=== PATIENT | male | born 1955 | race Caucasian/White ===

== ENCOUNTER 2025-02-25 15:22 | Inpatient (IN) | payer MEDICARE, MEDICAID ==
[~2025-02-25] VITALS: Ht 177.8 cm; Wt 66.2 kg
[2025-02-25 16:12] LABS: COVID AG,FIA SOURCE NASAL SWAB
[2025-02-25 16:13] LABS: PLATELET COUNT (AUTO) 178 K/uL (150-450); RED BLOOD CELL COUNT(AUTO) 4.20 MIL/uL (4.50-5.90); RED CELL DISTRIBUTION WIDTH 13.0 % (11.5-14.5); WHITE BLOOD COUNT (AUTO) 3.7 K/uL (4.5-11.0)
[2025-02-25 16:19] LABS: CALCIUM, TOTAL 8.8 mg/dL (8.8-10.5); CREATININE 0.90 mg/dL (0.60-1.30); GLOMERULAR FILTR. RATE CALC > 60 mL/min (>60); GLUCOSE,RANDOM 114 mg/dL (70-110); SODIUM SERUM 140 mmol/L (136-145); UREA NITROGEN, BLOOD 15 mg/dL (7-18)
[2025-02-25 16:25] LABS: ASPARTATE AMINOTRANSFERASE 14 U/L (15-37); TOTAL PROTEIN, SERUM 7.2 g/dL (6.4-8.2)
[2025-02-25 16:30] LABS: ALCOHOL, BLOOD (SERUM) < 3 mg/dL (0-10); TROPONIN I-HIGH SENSITIVITY 17 ng/L (<76)
[2025-02-25 16:36] LABS: SARS-COV2 (COVID) ANTIGEN,FIA Negative (Negative)
[2025-02-25 16:44] LABS: APPEARANCE,URINE CLEAR (CLEAR); GLUCOSE, URINE (UA) NEGATIVE (NEGATIVE); LEUKOCYTE ESTERASE ,URINE NEGATIVE (NEGATIVE); NITRATE,URINE NEGATIVE (NEGATIVE); OCCULT BLOOD,URINE NEGATIVE (NEGATIVE); PH,URINE DRUG SCREEN 5.5 (5.0-8.0); SPECIFIC GRAVITIY, URINE 1.028 (1.003-1.030)
[2025-02-25 16:52] LABS: ALCOHOL, URINE DRUG SCREEN NEGATIVE (NEGATIVE); AMPHET/METH SCREEN,URINE NEGATIVE (NEGATIVE); BARBITURATE SCREEN, URINE NEGATIVE (NEGATIVE); CANNABINOID SCREEN,URINE NEGATIVE (NEGATIVE); COCAINE SCREEN,URINE NEGATIVE (NEGATIVE); METHADONE SCREEN, URINE NEGATIVE (NEGATIVE)
[2025-02-25] MEDS ORDERED: INFLUENZA VIRUS VACCINE TVS (6MO+) 2025-26/PF 45 MCG/0.5 ML SYRINGE IM. ONE (22:00)
[2025-02-25] MEDS: ZOLPIDEM TARTRATE 5 MG TABLET PO PRN (22:07)
[2025-02-25 22:18] VITALS: BP 142/104; PULSE 77; RESP 17; TEMP 97.4; O2SAT 98
[2025-02-25 22:19] VITALS: BP 142/104; PULSE 77; RESP 17; TEMP 97.4; O2SAT 98
[2025-02-26 06:37] VITALS: BP 116/68; PULSE 62; RESP 16; TEMP 97.5; O2SAT 100
[2025-02-26 08:23] VITALS: BP 134/87; PULSE 64; RESP 17; TEMP 97.2; O2SAT 100
[2025-02-26 08:45] LABS: CHOL/HDL RATIO 3.0 (4.2-7.3); LDL CHOL (CALC.) 74.0 mg/dL (0-130)
[2025-02-26 09:00] VITALS: BP 134/84; PULSE 64; RESP 17; TEMP 97.2; O2SAT 100
[2025-02-26] MEDS: BENZTROPINE MESYLATE 1 MG TABLET PO SCH (17:20)
[2025-02-26 20:00] VITALS: BP 125/76; PULSE 61; RESP 18; TEMP 97.8; O2SAT 99
[2025-02-26 21:07] VITALS: BP 120/68; PULSE 50; RESP 16; TEMP 98.2; O2SAT 99
[2025-02-27 08:46] LABS: PLATELET COUNT (AUTO) 183 K/uL (150-450); RED BLOOD CELL COUNT(AUTO) 4.22 MIL/uL (4.50-5.90); RED CELL DISTRIBUTION WIDTH 13.3 % (11.5-14.5); WHITE BLOOD COUNT (AUTO) 4.0 K/uL (4.5-11.0)
[2025-02-27 09:21] VITALS: BP 129/87; PULSE 82; RESP 17; TEMP 97.2; O2SAT 96
[2025-02-27 09:23] LABS: ASPARTATE AMINOTRANSFERASE 14 U/L (15-37); CALCIUM, TOTAL 9.0 mg/dL (8.8-10.5); CREATININE 0.77 mg/dL (0.60-1.30); GLOMERULAR FILTR. RATE CALC > 60 mL/min (>60); GLUCOSE,RANDOM 85 mg/dL (70-110); SODIUM SERUM 140 mmol/L (136-145); TOTAL PROTEIN, SERUM 7.0 g/dL (6.4-8.2); UREA NITROGEN, BLOOD 18 mg/dL (7-18)
[2025-02-27 20:07] VITALS: BP 111/76; PULSE 57; RESP 18; TEMP 97.6; O2SAT 97
[2025-02-28 08:27] VITALS: BP 120/68; PULSE 60; RESP 19; TEMP 97.1; O2SAT 98
[2025-02-28] MEDS: APIXABAN 2.5 MG TABLET PO SCH (17:31)
[2025-02-28 20:07] VITALS: BP 103/72; PULSE 73; RESP 17; TEMP 97.8; O2SAT 97
[2025-02-28 23:45] VITALS: BP_SYST 122; BP_DIAS 78; BP_DIAS 92; PULSE 75; RESP 17; TEMP 97.9; TEMP 98; O2SAT 100
[2025-03-01] VITALS (7 sets, daily range): BP systolic 107–119; BP diastolic 54–90; PULSE 68–88; RESP 16–17; TEMP 97.3–98.1; O2SAT 96–100
== END 2025-03-01 18:48 | disposition short-term general hospital (02) | DRG 885 ==
LOC: EMS 15:22 → B2S 20:24
PROVIDERS: ADMIT Psychiatry & Neurology Child & Adolescent Psychiatry; ATTEND Psychiatry & Neurology Child & Adolescent Psychiatry
PROC: GZ56ZZZ Individual Psychotherapy, Supportive (ICD-10-PCS; principal; 2025-02-26)
DX: F32.2 Major depressive disorder, single episode, severe without psychotic features (principal); R45.851 Suicidal ideations; I10 Essential (primary) hypertension; Z20.822 Contact with and (suspected) exposure to COVID-19; F03.B0 Unspecified dementia, moderate, without behavioral disturbance, psychotic disturbance, mood disturbance, and anxiety; F29 Unspecified psychosis not due to a substance or known physiological condition
CPT/HCPCS: 80048; 80053; 80061; 80076; 80307; 81003; 83036; 83735; 84439; 84443; 84484; 85025; 99285; G0480

== ENCOUNTER 2025-03-01 05:09 | Inpatient (IN) | payer MEDICARE, OTHER ==
[~2025-03-01] VITALS: Ht 167.6 cm; Wt 67.5 kg
[2025-03-01 06:48] LABS: PLATELET COUNT (AUTO) 165 K/uL (150-450); RED BLOOD CELL COUNT(AUTO) 4.07 MIL/uL (4.50-5.90); RED CELL DISTRIBUTION WIDTH 13.3 % (11.5-14.5); WHITE BLOOD COUNT (AUTO) 4.7 K/uL (4.5-11.0)
[2025-03-01 07:39] LABS: CALCIUM, TOTAL 8.8 mg/dL (8.8-10.5); CREATININE 0.83 mg/dL (0.60-1.30); GLOMERULAR FILTR. RATE CALC > 60 mL/min (>60); GLUCOSE,RANDOM 96 mg/dL (70-110); SODIUM SERUM 141 mmol/L (136-145); UREA NITROGEN, BLOOD 17 mg/dL (7-18)
[2025-03-01 08:52] LABS: COVID AG,FIA SOURCE NASAL SWAB
[2025-03-01 09:20] LABS: SARS-COV2 (COVID) ANTIGEN,FIA Positive (Negative)
[2025-03-01] MEDS ORDERED: ACETAMINOPHEN 325 MG TABLET PO PRN (11:15)
[2025-03-01] MEDS ORDERED: ZOLPIDEM TARTRATE 5 MG TABLET PO PRN (11:15)
[2025-03-01] MEDS ORDERED: ONDANSETRON HCL 4 MG/2 ML VIAL IVP PRN (11:15)
[2025-03-01 15:06] LABS: APPEARANCE,URINE CLEAR (CLEAR); GLUCOSE, URINE (UA) NEGATIVE (NEGATIVE); LEUKOCYTE ESTERASE ,URINE NEGATIVE (NEGATIVE); NITRATE,URINE NEGATIVE (NEGATIVE); OCCULT BLOOD,URINE NEGATIVE (NEGATIVE); PH,URINE DRUG SCREEN 7.0 (5.0-8.0); SPECIFIC GRAVITIY, URINE 1.021 (1.003-1.030)
[2025-03-01 15:43] LABS: ALCOHOL, URINE DRUG SCREEN NEGATIVE (NEGATIVE); AMPHET/METH SCREEN,URINE NEGATIVE (NEGATIVE); BARBITURATE SCREEN, URINE NEGATIVE (NEGATIVE); CANNABINOID SCREEN,URINE NEGATIVE (NEGATIVE); COCAINE SCREEN,URINE NEGATIVE (NEGATIVE); METHADONE SCREEN, URINE NEGATIVE (NEGATIVE)
[2025-03-01] MEDS: HEPARIN SODIUM,PORCINE 5,000 UNITS/ML VIAL SQ SCH (16:00)
[2025-03-01] MEDS: DOCUSATE SODIUM 100 MG CAPSULE PO SCH (20:23)
[2025-03-01 22:35] VITALS: BP 117/70; PULSE 55; RESP 18; TEMP 97.7; O2SAT 99
[2025-03-02 05:00] VITALS: BP 132/83; PULSE 58; RESP 18; TEMP 97.5; O2SAT 98
[2025-03-02 07:37] VITALS: BP 158/79; PULSE 112; RESP 18; TEMP 97.7; O2SAT 95
[2025-03-02] MEDS: FAMOTIDINE 20 MG TABLET PO SCH (08:23)
[2025-03-02 15:22] VITALS: BP 111/78; PULSE 87; RESP 20; TEMP 97.9; O2SAT 99
[2025-03-02 20:01] VITALS: BP 115/74; PULSE 85; RESP 18; TEMP 98.2; O2SAT 98
[2025-03-03 04:14] VITALS: BP 114/73; PULSE 74; RESP 18; TEMP 98.6; O2SAT 99
[2025-03-03 08:00] VITALS: BP 125/74; PULSE 56; RESP 20; TEMP 97.7; O2SAT 100
[2025-03-03 10:57] LABS: COVID AG,FIA SOURCE NASAL SWAB
[2025-03-03 11:27] LABS: SARS-COV2 (COVID) ANTIGEN,FIA Negative (Negative)
[2025-03-03 16:00] VITALS: BP 112/70; PULSE 71; RESP 19; TEMP 98.1; O2SAT 99
[2025-03-03] MEDS ORDERED: DOCU-385 PO (18:26)
[2025-03-03] MEDS ORDERED: FAMO20 PO (18:26)
[2025-03-03] MEDS ORDERED: HEPA50009 SQ (18:27)
[2025-03-03] MEDS ORDERED: ACET-2247 PO (18:28)
[2025-03-03 20:00] VITALS: BP 145/79; PULSE 98; RESP 20; TEMP 98.4; O2SAT 99
== END 2025-03-03 20:45 | DRG 178 ==
LOC: EMS 05:10 → EDH 11:07 → 4E 22:34
PROVIDERS: ADMIT Internal Medicine; ATTEND Internal Medicine
DX: U07.1 COVID-19 (principal); F33.2 Major depressive disorder, recurrent severe without psychotic features; I10 Essential (primary) hypertension; Z04.3 Encounter for examination and observation following other accident
CPT/HCPCS: 80048; 80307; 81003; 85025; 97116; 97163; 99285; G0378; G0480; J1644

== ENCOUNTER 2025-03-03 09:10 | Inpatient (IN) | payer MEDICARE, MEDICAID ==
[~2025-03-03] VITALS: Ht 167.6 cm; Wt 64.9 kg
[2025-03-03] MEDS ORDERED: ZOLPIDEM TARTRATE 10 MG TABLET PO PRN (15:00)
[2025-03-03] MEDS ORDERED: FAMO20 PO (18:26)
[2025-03-03] MEDS ORDERED: DOCU-385 PO (18:26)
[2025-03-03] MEDS ORDERED: HEPA50009 SQ (18:27)
[2025-03-03] MEDS ORDERED: ACET-2247 PO (18:28)
[2025-03-03 23:50] VITALS: BP_SYST 124; BP_DIAS 70; BP_DIAS 72; PULSE 74; PULSE 80; RESP 18; TEMP 98.1; TEMP 98.2; O2SAT 98
[2025-03-04] MEDS: DOCUSATE SODIUM 100 MG CAPSULE PO SCH (09:23)
[2025-03-04] MEDS: BENZTROPINE MESYLATE 1 MG TABLET PO SCH ×2 (09:23→17:05)
[2025-03-04] MEDS: FAMOTIDINE 20 MG TABLET PO SCH (09:23)
[2025-03-04 09:56] LABS: CHOL/HDL RATIO 2.8 (4.2-7.3); LDL CHOL (CALC.) 71.0 mg/dL (0-130)
[2025-03-04 10:22] VITALS: BP 115/97; PULSE 70; RESP 18; TEMP 98.1; O2SAT 99
[2025-03-04 10:28] VITALS: BP 115/97; PULSE 70; RESP 17; TEMP 98.1
[2025-03-04 20:00] VITALS: BP 97/62; PULSE 74; RESP 18; TEMP 98.1; O2SAT 99
[2025-03-05 09:27] VITALS: BP 116/88; PULSE 72; RESP 16; TEMP 97.1
[2025-03-05 20:14] VITALS: BP 112/71; PULSE 63; RESP 18; TEMP 97.6; O2SAT 99
[2025-03-06 08:04] VITALS: BP 114/63; PULSE 66; RESP 16; TEMP 97.8; O2SAT 100
[2025-03-06 22:46] VITALS: BP 139/87; PULSE 87; RESP 18; TEMP 98.1; O2SAT 97
[2025-03-07 09:46] VITALS: BP 134/76; PULSE 81; RESP 17; TEMP 98.6; O2SAT 95
[2025-03-07 21:28] VITALS: BP 112/65; PULSE 58; RESP 18; TEMP 98.3; O2SAT 100
[2025-03-08] MEDS ORDERED: PALI234D IM (08:48)
[2025-03-08] MEDS: MULTIVITAMINS WITH IRON TABLET PO SCH (08:56)
[2025-03-08 11:18] VITALS: BP 112/88; PULSE 71; RESP 17; TEMP 97.7; O2SAT 98
[2025-03-08 20:51] VITALS: BP 115/79; PULSE 69; RESP 18; TEMP 98.1; O2SAT 99
[2025-03-09 09:28] VITALS: BP 109/76; PULSE 87; RESP 17; TEMP 97.5; O2SAT 98
[2025-03-09 20:24] VITALS: BP 104/64; PULSE 68; RESP 18; TEMP 97.7; O2SAT 100
[2025-03-10 10:28] VITALS: BP 105/66; PULSE 83; RESP 18; TEMP 97.7; O2SAT 97
[2025-03-10 21:14] VITALS: BP 98/64; PULSE 72; RESP 18; TEMP 98.7; O2SAT 100
[2025-03-11 08:44] VITALS: BP 126/62; PULSE 65; RESP 16; TEMP 97.8; O2SAT 100
[2025-03-11 20:42] VITALS: BP 112/54; PULSE 65; RESP 18; TEMP 98.1; O2SAT 98
[2025-03-12 10:20] VITALS: BP 123/88; PULSE 69; RESP 18; TEMP 98; O2SAT 97
[2025-03-12 20:10] VITALS: BP 98/77; PULSE 68; RESP 16; TEMP 98.4; O2SAT 95
[2025-03-13 12:33] VITALS: BP 134/77; PULSE 68; RESP 18; TEMP 97.4; O2SAT 99
[2025-03-13 20:09] VITALS: BP 105/76; PULSE 85; RESP 18; TEMP 97.8; O2SAT 98
[2025-03-14 10:39] VITALS: BP 114/66; PULSE 60; RESP 18; TEMP 97.5; O2SAT 98
[2025-03-14 20:20] VITALS: BP 102/63; PULSE 63; RESP 18; TEMP 97.8; O2SAT 98
[2025-03-15 09:37] VITALS: BP 107/81; PULSE 57; RESP 18; TEMP 98; O2SAT 98
[2025-03-15] MEDS: PALIPERIDONE PALMITATE 234 MG/1.5 ML SYRINGE IM SCH (17:12)
[2025-03-15 20:30] VITALS: BP 108/58; PULSE 62; RESP 17; TEMP 98.2; O2SAT 97
[2025-03-16 08:05] VITALS: BP 123/66; PULSE 74; RESP 17; TEMP 98; O2SAT 100
[2025-03-16 20:00] VITALS: BP 103/60; PULSE 105; RESP 18; TEMP 97.5; O2SAT 100
[2025-03-17 08:00] VITALS: BP_SYST 78; PULSE 92; RESP 18; TEMP 97.7; O2SAT 100
[2025-03-17 20:00] VITALS: BP 102/60; PULSE 69; RESP 18; TEMP 97.5; O2SAT 99
[2025-03-18 08:40] VITALS: BP 109/71; PULSE 60; RESP 16; TEMP 97.9; O2SAT 100
[2025-03-18 21:42] VITALS: BP 110/61; PULSE 71; RESP 18; TEMP 97.7
[2025-03-19 10:51] VITALS: BP 105/74; PULSE 75; RESP 14; TEMP 97.1; O2SAT 96
[2025-03-19 20:10] VITALS: BP 101/71; PULSE 87; RESP 18; TEMP 97.3; O2SAT 97
[2025-03-20 10:29] VITALS: BP 117/101; PULSE 65; RESP 18; TEMP 97.9; O2SAT 98
[2025-03-20 20:01] VITALS: BP 98/63; PULSE 68; RESP 18; TEMP 98.1; O2SAT 99
[2025-03-21 09:06] VITALS: BP 127/62; PULSE 77; RESP 18; TEMP 97.2; O2SAT 96
[2025-03-21 20:42] VITALS: BP 100/68; PULSE 66; RESP 18; TEMP 98.4; O2SAT 97
[2025-03-22 13:03] VITALS: BP 105/45; PULSE 103; RESP 18; TEMP 97.6; O2SAT 99
[2025-03-22 20:00] VITALS: BP 130/85; PULSE 85; RESP 18; TEMP 97.5; O2SAT 99
[2025-03-23 08:59] VITALS: BP 131/82; PULSE 83; RESP 18; TEMP 97.5; O2SAT 98
[2025-03-23 20:58] VITALS: BP 107/63; PULSE 67; RESP 18; TEMP 98; O2SAT 96
[2025-03-24 09:13] VITALS: BP 111/88; PULSE 66; RESP 18; TEMP 98.7; O2SAT 96
[2025-03-24 21:51] VITALS: BP 110/82; PULSE 85; RESP 18; TEMP 97.5; O2SAT 95
[2025-03-25 09:18] VITALS: BP 91/71; PULSE 55; RESP 18; TEMP 97.7; O2SAT 100
[2025-03-25 21:25] VITALS: BP 100/71; PULSE 67; RESP 18; TEMP 98.3; O2SAT 98
[2025-03-26 10:02] VITALS: BP 116/70; PULSE 53; RESP 18; TEMP 97.3; O2SAT 100
[2025-03-26] MEDS ORDERED: RISP-32 PO (11:07)
[2025-03-26] MEDS ORDERED: MULT-1390 PO (11:07)
[2025-03-26] MEDS ORDERED: BENZ-247 PO (11:09)
== END 2025-03-26 13:26 | DRG 885 ==
LOC: 3EI 21:18
PROVIDERS: ADMIT Psychiatry & Neurology Psychiatry; ATTEND Psychiatry & Neurology Child & Adolescent Psychiatry
PROC: GZHZZZZ Group Psychotherapy (ICD-10-PCS; principal; 2025-03-04)
PROC: GZ52ZZZ Individual Psychotherapy, Cognitive (ICD-10-PCS; 2025-03-04)
DX: F33.2 Major depressive disorder, recurrent severe without psychotic features (principal); F03.93 Unspecified dementia, unspecified severity, with mood disturbance; F20.0 Paranoid schizophrenia; Z79.899 Other long term (current) drug therapy; Z75.1 Person awaiting admission to adequate facility elsewhere; D64.9 Anemia, unspecified
CPT/HCPCS: 80061; 83036; 87081